=== PATIENT | female | born 1980 | race Caucasian/White ===

== ENCOUNTER 2020-12-19 05:38 | Emergency (ER) | payer MEDICARE, MEDICAID ==
[2020-12-19 06:44] LABS: Bilirubin Neg (Negative); Blood, Urine 25 (Negative); Clarity Clear (Clear); Glucose, Urine (Dipstick) Normal (Negative); Ketone, Urine Negative (Negative); Leukocyte 25 (Negative); Nitrite Negative (Negative); Protein, Urine (Dipstick) Negative (Neg-Trace); Urobilinogen Normal mg/dL (Less than 2)
[2020-12-19 06:48] LABS: Pregnancy Test - Urine (BHCG) Negative (Negative); Pregu Control Background? CLEAR/WHITE (CLR/WHITE); Pregu Control Bar Appear? YES (CONTROL BAR)
[2020-12-19 06:59] LABS: Bacteria/HPF None Seen HPF (None Seen); RBC/HPF 0-3 HPF (0-3); Squamous Epithelial 0-3 HPF (0-3); WBC/HPF 0-3 HPF (0-3)
[2020-12-19] MEDS ORDERED: cefTRIAXone\\ROCEPHIN 250 MG VIAL ONE (07:13)
[2020-12-19] MEDS ORDERED: Azithromycin 250 MG TAB ONE (07:13)
[2020-12-19] MEDS ORDERED: Sterile Water 10 ML ONE (07:13)
[2020-12-19 21:35] LABS: Chlam.trachomatis by PCR,Urine Not Detected (NotDetected)
== END 2020-12-19 07:53 | disposition home or self-care (01) ==
LOC: CSHERS 05:38
DX: N76.0 Acute vaginitis (principal); Z76.0 Encounter for issue of repeat prescription; Z20.2 Contact with and (suspected) exposure to infections with a predominantly sexual mode of transmission; F17.210 Nicotine dependence, cigarettes, uncomplicated
CPT/HCPCS: 81003; 81015; 81025; 87491; 87591; 96372; 99283; J0696

== ENCOUNTER 2022-09-08 05:01 | Emergency (ER) | payer OTHER, MEDICAID | END 2022-09-08 05:20 | disposition home or self-care (01) | LOC: CSHERS 05:01 | DX: R06.2 Wheezing (principal); F17.210 Nicotine dependence, cigarettes, uncomplicated | CPT/HCPCS: 99284 ==

== ENCOUNTER 2023-04-28 15:55 | Emergency (ER) | payer OTHER, MEDICAID | END 2023-04-28 16:50 | disposition home or self-care (01) | LOC: CSHERS 15:55 | DX: R07.89 Other chest pain (principal); R51.9 Headache, unspecified; F17.210 Nicotine dependence, cigarettes, uncomplicated | CPT/HCPCS: 93005 ==

== ENCOUNTER 2024-01-28 14:57 | Emergency (ER) | payer SELFPAY ==
[2024-01-28] MEDS ORDERED: Ketorolac Tromethamine 30 MG (1 mL) VIAL ONE (15:49)
== END 2024-01-28 16:25 | disposition home or self-care (01) ==
LOC: CSHERS 14:57
DX: I10 Essential (primary) hypertension (principal); Z76.0 Encounter for issue of repeat prescription; J45.909 Unspecified asthma, uncomplicated; Z87.891 Personal history of nicotine dependence; Z55.6 Problems related to health literacy
CPT/HCPCS: 96372; 99283; J1885

== ENCOUNTER 2024-06-03 22:14 | Emergency (ER) | payer MEDICARE, MEDICAID | END 2024-06-04 02:35 | disposition home or self-care (01) | LOC: CSHERS 22:14 | DX: M79.605 Pain in left leg (principal); F17.290 Nicotine dependence, other tobacco product, uncomplicated; F17.210 Nicotine dependence, cigarettes, uncomplicated ==